=== PATIENT | female | born 1985 | race American Indian/Alaskan Native ===

== ENCOUNTER 2018-02-02 03:32 | Inpatient (IN) | payer MEDICAID ==
[2018-02-02] MEDS ORDERED: LACTATED RINGERS 1,000 ML IV ONE (03:53)
[2018-02-02] MEDS ORDERED: BRETHINE SUB-Q PRN (04:23)
[2018-02-02] MEDS ORDERED: XYLOCAINE 2% INFILTRATI ONE (04:23)
[2018-02-02] MEDS ORDERED: BRETHINE IVP PRN (04:23)
[2018-02-02] MEDS ORDERED: SUBLIMAZE IV PRN (04:23)
[2018-02-02] MEDS ORDERED: POLYCILLIN/NS 2 GM/100 ML 2 GM/100 ML BAG IV ONE (04:23)
[2018-02-02 04:34] LABS: Hemoglobin 9.9 gm/dl (10.1-14.3); Mean Corpuscular HGB Conc 34 % (30-34); Mean Corpuscular Hemoglobin 32 pg (28-32); Mean Corpuscular Volume 93 fl (79-97); Platelet Count 259 K/mm3 (140-440); Red Blood Count 3.11 M/mm3 (3.65-5.03)
[2018-02-02] MEDS ORDERED: PITOCin/NS 20 UNIT/1000ML DRIP 20 UNITS/1,000 ML BAG IV SCH ×2 (05:00→11:26)
[2018-02-02] MEDS ORDERED: LACTATED RINGERS 1,000 ML IV SCH (05:00)
--- NOTE | 2018-02-02 06:55 | History and Physical Report ---
History of Present Illness Date of examination: 02/02/18 Date of admission: 02/02/18 04:31 Chief complaint: my water broke History of present illness: Pt presents to triage after having called provider c/o ANUJA.SROM @ [id number] and noted to be clear fluid as per triage nurse. pt also 3cto 4cm at time of admission. Pt did have gbs done these week but results are not available to me at this time.She is admitted and started on anitbx for gbs and will be augmented with pitocin after antix are in. Plan of care d/w pt and all questions were addressed and answered. Past History Past Medical History: no pertinent history Past Surgical History: no surgical history - Obstetrical History Expected Date of Delivery: 02/25/18 Actual Gestation: 36 Week(s) 5 Day(s) : 5 Para: 1 Number of Living Children: 1 Medications and Allergies Allergies Allergy/AdvReac Type Severity Reaction Status Date / Time latex Allergy Itching Verified 02/02/18 03:55 Home Medications Medication Instructions Recorded Confirmed Last Taken Type No Known Home Medications [No 08/29/14 02/02/18 Unknown History Reported Home Medications] Active Meds: Active Medications Ephedrine Sulfate (Ephedrine Sulfate) 10 mg IV Q2M PRN PRN Reason: Hypotension Fentanyl (Sublimaze) 100 mcg IV Q2H PRN PRN Reason: Labor Pain Ampicillin Sodium (Ampicillin/Ns 1 Gm/50 Ml) 1 gm in 50 mls @ 100 mls/hr IV Q4H URI; Protocol Lactated Ringer's (Lactated Ringers) 1,000 mls @ 125 mls/hr IV DIRECT URI Last Admin: 02/02/18 04:45 Dose: 125 mls/hr Oxytocin/Sodium Chloride (Pitocin/Ns 20 Unit/1000ml Drip) 20 units in 1,000 mls @ 125 mls/hr IV DIRECT URI Oxytocin/Sodium Chloride (Pitocin/Ns 30 Unit/500ml) 30 units in 500 mls @ 2 mls /hr IV TITR URI; Protocol Mineral Oil (Mineral Oil) 30 ml PO QHS PRN PRN Reason: Constipation Terbutaline Sulfate (Brethine) 0.25 mg SUB-Q ONCE PRN PRN Reason: Hyperstimulation/Hypertonicity Terbutaline Sulfate (Brethine) 0.25 mg IVP ONCE PRN PRN Reason: Hyperstimulation/Hypertonicity - Vital Signs Vital signs: Vital Signs Pulse BP 85 128/70 02/02/18 03:51 02/02/18 03:51 Temp Pulse Resp BP Pulse Ox 98.2 F 93 H 18 109/57 02/02/18 03:53 02/02/18 06:04 02/02/18 03:53 02/02/18 06:04 - Physical Exam Lungs: Positive: Normal air movement Abdomen: Positive: normal appearance, soft. Negative: tenderness, guarding - Obstetrical FHR: category 1 Results Result Diagrams: 02/02/18 04:12 Abnormal lab results 02/02/18 Range/Units 04:12 WBC 15.7 H (4.5-11.0) K/mm3 RBC 3.11 L (3.65-5.03) M/mm3 Hgb 9.9 L (10.1-14.3) gm/dl Hct 29.0 L (30.3-42.9) % RDW 13.0 L (13.2-15.2) % All other labs normal. Assessment and Plan - Patient Problems (1) 36 weeks gestation of Current Visit: Yes Status: Acute (2) SROM (spontaneous rupture of membranes) Current Visit: Yes Status: Acute Plan to address problem: -antibx until gbs status is confirmed -pitocin after two doses are in
[2018-02-02] MEDS ORDERED: PITOCin/NS 30 UNIT/500ML 30 UNITS/500 ML BAG IV SCH (08:00)
[2018-02-02] MEDS ORDERED: AMPICILLIN/NS 1 GM/50 ML 1 GM/50 ML BAG IV SCH (08:00)
--- NOTE | 2018-02-02 09:21 | Procedure Note ---
OB Delivery Note - Delivery Date of Delivery: 02/02/18 ( Male) Director Of Sustainability Programs: SERAFIN NEFF Estimated blood loss: 500cc - Vaginal Delivery presentation: vertex Delivery position: OA Intrapartum events: none Delivery induction: none Delivery augmentation: pitocin Delivery monitor: external FHT, external uterine Route of delivery: Delivery placenta: spontaneous Delivery cord: nuchal cord, 3 umbilical vessels Episiotomy: none Delivery laceration: none Anesthesia: intravenous Delivery comments: Male del over intact perineum, tight NC Somersaulted through, infant placed on abdomen. 3 vessel cord clamped and cut. placenta delivered intact and complete. no lacerations to repair. Uterus boggy and IV not patent, IM pitocin given. Uterus firmed and bleeding scant to small. EBL 500. Apgars 8/9. wt 6#3oz Mother and infant LDR stable. - Infant A at 1 minute: 8 at 5 minutes: 9 Infant Gender: Male
[2018-02-02] MEDS ORDERED: TYLENOL PO PRN (11:26)
[2018-02-02] MEDS ORDERED: LANSINOH TP PRN (11:26)
[2018-02-02] MEDS ORDERED: ZOFRAN IV PRN (11:26)
[2018-02-02] MEDS ORDERED: PHENERGAN PO PRN (11:26)
[2018-02-02] MEDS ORDERED: DULCOLAX PR PRN (11:26)
[2018-02-02] MEDS ORDERED: MILK OF MAGNESIA PO PRN (11:26)
[2018-02-02] MEDS ORDERED: TUCKS PAD TP PRN (11:26)
[2018-02-02] MEDS ORDERED: BENADRYL PO PRN (11:26)
[2018-02-02] MEDS ORDERED: SODIUM CHLORIDE FLUSH SYRINGE 10 ML IV NR (11:26)
[2018-02-02] MEDS: NORCO 5/325 PO PRN ×2 (11:44→18:25)
[2018-02-02] MEDS: MOTRIN PO SCH ×2 (11:45→18:25)
[2018-02-02] MEDS ORDERED: NORCO 5/325 ONE (11:53)
[2018-02-02] MEDS ORDERED: MOTRIN PO ONE (11:53)
[2018-02-02 21:46] LABS: Hemoglobin 8.7 gm/dl (10.1-14.3)
[2018-02-02] MEDS ORDERED: MINERAL OIL PO PRN (22:00)
[2018-02-03] MEDS: NORCO 5/325 PO PRN (00:27)
[2018-02-03] MEDS: MOTRIN PO SCH ×5 (00:29→23:30)
[2018-02-03] MEDS: FEOSOL PO SCH ×3 (00:29→22:15)
[2018-02-03] MEDS: COLACE PO SCH ×3 (00:33→21:58)
[2018-02-03] MEDS ORDERED: BOOSTRIX IM ONE (09:23)
--- NOTE | 2018-02-03 12:05 | Discharge Summary ---
Providers - Providers Date of Admission: 02/02/18 04:31 Date of discharge: 02/03/18 (desires d/c home) Attending physician: SERGO LEMUS Primary care physician: SERGO LEMUS Hospitalization Reason for admission: Labor, SROM Condition: Good Pertinent studies: post del H&H 8.7/26.0, existing anemia, asymptomatic Procedures: vaginal Hospital course: uncomplicated vaginal and course Disposition: DC- TO HOME OR SELFCARE - Discharge Diagnoses (1) (normal spontaneous vaginal delivery) Status: Acute (2) Anemia Status: Acute Core Measure Documentation - Palliative Care Palliative Care/ Comfort Measures: Not Applicable - Core Measures Any of the following diagnoses?: none Exam - Constitutional Vitals: Temp Pulse Resp BP Pulse Ox 98.6 F 76 18 112/60 94 02/02/18 23:57 02/02/18 23:57 02/02/18 23:57 02/02/18 23:57 02/02/18 23:57 General appearance: Present: no acute distress, well-nourished - EENT Eyes: Present: PERRL ENT: hearing intact, clear oral mucosa - Neck Neck: Present: supple, normal ROM - Respiratory Respiratory effort: normal Respiratory: bilateral: CTA - Cardiovascular Heart Sounds: Present: S1 & S2. Absent: rub, click - Extremities Extremities: pulses symmetrical, No edema Peripheral Pulses: within normal limits - Abdominal General gastrointestinal: Present: soft, non-tender, non-distended, normal bowel sounds Female genitourinary: Present: normal - Integumentary Integumentary: Present: clear, warm, dry - Musculoskeletal Musculoskeletal: gait normal, strength equal bilaterally - Psychiatric Psychiatric: appropriate mood/affect, intact judgment & insight - Neurologic Neurologic: CNII-XII intact, moves all extremities - Additional findings Additional findings: Lochia scant, fundus firm, VSSAF, H&H stable Plan Activity: no restrictions Diet: regular Follow up with: SERGO LEMUS MD [Primary Care Provider] - 7 Days (Congratulations! Please call [phone] to schedule your son's circumcision in 1 week and your visit in 4 weeks. Bring EMLA cream to your son's visit and await further teaching.Call for any questions or concerns. ) Prescriptions: Ferrous Sulfate [Feosol 325 MG tab] 325 mg PO BID #90 tablet Ibuprofen [Motrin 800 MG tab] 800 mg PO Q8HR PRN #30 tablet PRN Reason: Pain Lidocain2.5%/Prilocai2.5% [Emla] 5 gm TP ONCE PRN #1 tube PRN Reason: Pain
[2018-02-03] MEDS: PRENATAL VITAMIN PO SCH (13:14)
[2018-02-04] MEDS: MOTRIN PO SCH (06:10)
[2018-02-04] MEDS: COLACE PO SCH (10:00)
[2018-02-04] MEDS: FEOSOL PO SCH (12:18)
[2018-02-04] MEDS: PRENATAL VITAMIN PO SCH (12:18)
[2018-02-04 16:48] VITALS: BP 116/69
== END 2018-02-04 17:00 | disposition home or self-care (01) | DRG 775 ==
LOC: TRG 03:32 → LD 04:31 → OB 11:50
PROVIDERS: ADMIT Obstetrics & Gynecology; ATTEND Obstetrics & Gynecology
PROC: 10E0XZZ Delivery of Products of Conception, External Approach (ICD-10-PCS; principal; 2018-02-02)
DX: O99.02 Anemia complicating childbirth (principal); D64.9 Anemia, unspecified; Z3A.36 36 weeks gestation of pregnancy; Z37.0 Single live birth; Z91.040 Latex allergy status; O69.1XX0 Labor and delivery complicated by cord around neck, with compression, not applicable or unspecified
CPT/HCPCS: 36415; 85014; 85018; 85027; 86592; 86706; 86762; 86850; 86900; 86901; A6250; J0290; J2590; J3010; J7120